=== PATIENT | female | born 1970 | race Caucasian/White ===

== ENCOUNTER 2017-11-29 09:34 | Emergency (ER) | payer OTHER ==
[~2017-11-29 09:34] MED LIST: AMOXICILLIN500 M2 PO; CLINDAMYCIN HC300 MG PO; CLINDAMYCIN150 MG PO; CORDROL20 MG PO; MOTRIN800 MG PO; NAPROSYN500 MG PO; NKHM; TRAMADOL HCL50 MG PO; VICODIN 500 MG-1 TAB PO
[2017-11-29 09:38] VITALS: BP 145/88
[2017-11-29] MEDS ORDERED: LOTRIMIN 1%15 GM PO (09:54)
== END 2017-11-29 10:16 | disposition home or self-care (01) ==
LOC: ED 09:34
DX: B35.4 Tinea corporis (principal); Z98.51 Tubal ligation status; Z88.0 Allergy status to penicillin

== ENCOUNTER → 2018-02-22 | Outpatient (CLI) | payer OTHER ==
[~2018-02-22] MED LIST changes: +LOTRIMIN 1%15 GM PO
== END | disposition home or self-care (01) ==
LOC: RAD 12:42
DX: M54.5 Low back pain (principal)

== ENCOUNTER → 2020-08-09 | Outpatient (CLI) | payer OTHER ==
[~2020-08-09] MED LIST changes: +AMOXICILLIN500 M3 PO; +CYCLOBENZAPRINE5 M3 PO; +LIDOCAINE PAIN1 EACH T; +MEDROL DOSEPAK4 MG PO
== END | disposition home or self-care (01) ==
LOC: COVID19 08:11
PROVIDERS: ATTEND Internal Medicine
DX: U07.1 COVID-19 (principal)

== ENCOUNTER 2020-09-24 06:35 | Emergency (ER) | payer OTHER ==
[~2020-09-24] VITALS: Ht 162.5 cm; Wt 86.2 kg
[~2020-09-24 06:35] MED LIST changes: -AMOXICILLIN500 M3 PO
[2020-09-24 07:16] VITALS: BP 150/90
[2020-09-24] MEDS ORDERED: AMOXICILLIN500 M3 PO (07:26)
== END 2020-09-24 08:20 | disposition home or self-care (01) ==
LOC: ED 06:35 → EDBD 06:37 → ED 08:20
DX: K04.7 Periapical abscess without sinus (principal)

== ENCOUNTER 2021-12-03 06:11 | Observation (INO) | payer OTHER ==
[~2021-12-03] VITALS: Ht 162.5 cm; Wt 93.2 kg
[~2021-12-03 06:11] MED LIST changes: +AMOXICILLIN500 M3 PO
[2021-12-03 06:18] VITALS: BP 178/88
[2021-12-03 07:05] LABS: BASO # 0.1 10*3/uL (0.0-0.1); BASO % 0.8 % (0.0-1.0); EOS # 0.2 10*3/uL (0.0-0.4); EOS % 2.7 % (1.0-4.0); HEMATOCRIT 44.3 % (37.0-47.0); LYMPH # 1.4 10*3/uL (1.3-4.4); LYMPH % 21.7 % (27.0-41.0); MEAN CELL VOLUME 89.3 fl (81.0-99.0); MEAN CORPUSCULAR HGB 28.8 pg (27.0-31.0); MEAN CORPUSCULAR HGB CONC 32.3 g/dl (33.0-37.0); MEAN PLATELET VOLUME 8.4 fl (9.6-12.3); MONO # 0.6 10*3/uL (0.1-1.0); MONO % 9.9 % (3.0-9.0); NEUT % 64.6 % (47.0-73.0); PLATELET COUNT AUTOMATED 351 10*3/uL (130-400); RED BLOOD COUNT 4.96 10*6/uL (4.10-5.10); RED CELL DISTRI WIDTH 13.2 % (0-14.5); WHITE BLOOD COUNT 6.3 10*3/uL (4.8-10.8)
[2021-12-03 07:22] LABS: ALKALINE PHOSPHATASE 74 U/L (45-117); BUN 9 mg/dl (7-24); CHLORIDE 107 mmol/L (98-107); CREATININE 0.76 mg/dL (0.55-1.02); LIPASE 1108 U/L (73-393); POTASSIUM 3.5 mmol/L (3.5-5.1); SGOT/AST 14 IU/L (3-35); SGPT/ALT 21 U/L (12-78); SODIUM 141 mmol/L (136-145); TOTAL PROTEIN 7.3 gm/dL (6.4-8.2)
[2021-12-03 07:23] VITALS: BP 164/90
[2021-12-03 09:40] VITALS: BP 167/86
[2021-12-03 12:00] VITALS: BP 155/91
[2021-12-03 12:43] LABS: BILIRUBIN Negative (Negative); BLOOD Negative (Negative); CLARITY Clear (Clear); COLOR Yellow (Yellow); GLUCOSE Negative (Negative); KETONE Trace (Negative); LEUKO ESTERASE Negative (Negative); NITRITE Negative (Negative); PH 7.5 (4.5-8.0); SPECIFIC GRAVITY 1.015 (1.001-1.030); UROBILINOGEN 0.2 E.U./dl (0.0-1.0)
[2021-12-03 12:56] LABS: BACTERIA 1+
[2021-12-03 16:00] VITALS: BP 155/87
[2021-12-03 20:00] VITALS: BP 140/81
[2021-12-04] VITALS: BP 142/79
[2021-12-04 06:10] LABS: BUN 7 mg/dl (7-24); CHLORIDE 108 mmol/L (98-107); CHOLESTEROL 178 mg/dL (<200); CREATININE 0.68 mg/dL (0.55-1.02); POTASSIUM 3.7 mmol/L (3.5-5.1); SGOT/AST 9 IU/L (3-35); SGPT/ALT 13 U/L (12-78); SODIUM 139 mmol/L (136-145); TRIGLYCERIDES 93 mg/dl (<150)
[2021-12-04 06:18] LABS: ALKALINE PHOSPHATASE 69 U/L (45-117); LDL CHOLESTEROL 111 mg/dL (9-159); TOTAL PROTEIN 6.7 gm/dL (6.4-8.2)
[2021-12-04 06:25] LABS: ACT PARTIAL THROMBO TIME 29.5 SECONDS (20.0-32.1)
[2021-12-04 06:40] LABS: BASO # 0.1 10*3/uL (0.0-0.1); BASO % 0.7 % (0.0-1.0); EOS # 0.3 10*3/uL (0.0-0.4); EOS % 3.8 % (1.0-4.0); HEMATOCRIT 40.8 % (37.0-47.0); LYMPH # 1.9 10*3/uL (1.3-4.4); LYMPH % 25.7 % (27.0-41.0); MEAN CELL VOLUME 90.1 fl (81.0-99.0); MEAN CORPUSCULAR HGB 29.4 pg (27.0-31.0); MEAN CORPUSCULAR HGB CONC 32.6 g/dl (33.0-37.0); MEAN PLATELET VOLUME 8.8 fl (9.6-12.3); MONO # 0.7 10*3/uL (0.1-1.0); MONO % 9.9 % (3.0-9.0); NEUT # 4.4 10*3/uL (2.3-7.9); NEUT % 59.8 % (47.0-73.0); PLATELET COUNT AUTOMATED 345 10*3/uL (130-400); RED BLOOD COUNT 4.53 10*6/uL (4.10-5.10); RED CELL DISTRI WIDTH 13.2 % (0-14.5); WHITE BLOOD COUNT 7.3 10*3/uL (4.8-10.8)
[2021-12-04 08:00] VITALS: BP 159/87
[2021-12-04 09:17] LABS: VITAMIN D, 25-HYDROXY 50.1 ng/mL (30-100)
[2021-12-04] MEDS ORDERED: ZOFRAN4 MG PO (11:08)
[2021-12-04] MEDS ORDERED: PEPCID20 MG PO (11:08)
== END 2021-12-04 12:12 | disposition home or self-care (01) ==
LOC: ED 06:11 → 4E 07:55 → EDHOLD 07:55 → 4E 08:27
PROVIDERS: Emergency Medicine; Hospitalist; ADMIT Student in an Organized Health Care Education/Training Program; ATTEND Student in an Organized Health Care Education/Training Program
DX: K85.00 Idiopathic acute pancreatitis without necrosis or infection (principal); E44.0 Moderate protein-calorie malnutrition; R73.9 Hyperglycemia, unspecified; E66.9 Obesity, unspecified; M47.816 Spondylosis without myelopathy or radiculopathy, lumbar region; R00.1 Bradycardia, unspecified; Z87.891 Personal history of nicotine dependence; Z79.899 Other long term (current) drug therapy

== ENCOUNTER 2024-10-29 09:00 | Emergency (ER) | payer OTHER ==
[~2024-10-29] VITALS: Ht 162.5 cm; Wt 86.2 kg
[~2024-10-29 09:00] MED LIST changes: +PEPCID20 MG PO; +ZOFRAN4 MG PO
[2024-10-29 09:05] VITALS: BP 155/88
[2024-10-29] MEDS ORDERED: AVPAK AZITHROM250 MG PO (10:34)
[2024-10-29] MEDS ORDERED: MEDROL DOSEPAK4 MG PO (10:34)
== END 2024-10-29 10:57 | disposition home or self-care (01) ==
LOC: ED 09:00
DX: J40 Bronchitis, not specified as acute or chronic (principal); Z20.822 Contact with and (suspected) exposure to COVID-19; Z87.891 Personal history of nicotine dependence